=== PATIENT | male | born 1970 | race Caucasian/White ===

== ENCOUNTER 2017-08-08 16:06 | Emergency (ER) | payer BC ==
--- NOTE | 2017-08-08 16:42 | UC ---
Respiratory Complaint HPI - HPI Summary HPI Summary: 46 y/o male presents to the urgent care c/o productive cough, sore throat, nasal congestion w/ yellowish nasal discharge for the past week. Pt reports symptoms started as a common cold. Pt is schedule for a Colonoscopy and endoscopy next Monday and he saw Dr Lee this morning and he told him he had some abnormal breath sounds on RT lung and he needed to f/u w/ PCP to r/o any lung infection. He couldn't get an appt w/ PCP DR Can and he was told to come here to the clinic. Pt is a heavy everyday smoker. Pt denies chills, fever, SOB, chest pain, abdominal pain, N/V/D. - History of Current Complaint Stated Complaint: RESPIRATORY Time Seen by Provider: 08/08/17 16:39 Hx Obtained From: Patient Onset/Duration: Gradual Onset, Lasting Weeks - 1 week Timing: Intermittent Episodes Severity Initially: Mild Severity Currently: Mild Pain Intensity: 0 Pain Scale Used: 0-10 Numeric Character: Cough: Productive, Sputum Description: - yellowish Aggravating Factors: Recumbent Position Alleviating Factors: OTC Meds Associated Signs And Symptoms: Positive: URI, Nasal Congestion. Negative: Fever , Chills - Risk Factors Pulmonary Embolism Risk Factors: Negative Cardiac Risk Factors: Negative Pseudomonas Risk Factors: Negative Tuberculosis Risk Factors: Negative - Allergies/Home Medications Allergies/Adverse Reactions: Allergies Allergy/AdvReac Type Severity Reaction Status Date / Time morphine Allergy Unknown severe Verified 08/08/17 16:34 depression Home Medications: Home Medications Carisoprodol TAB* [Soma TAB*] 350 mg PO Q6H PRN 08/08/17 [History Confirmed ] Dm/Acetaminophen/Doxylamine [Night Cold-Flu Relief Liq Gel] 1 each PO PRN [History] PMH/Surg Hx/FS Hx/Imm Hx Previously Healthy: Yes - Pt denies PMHX - Surgical History Surgical History: Yes Surgery Procedure, Year, and Place: Cyst on lower spine removed - Family History Known Family History: Positive: Unknown - Pt is adopted - Social History Occupation: Employed Full-time Lives: With Family Alcohol Use: Occasionally Alcohol Amount: 6-10 2X PER MONTH Substance Use Type: Marijuana Substance Use Comment - Amount & Last Used: 2-3 X PER MONTYH Smoking Status (MU): Heavy Every Day Tobacco Smoker Type: Cigarettes Amount Used/How Often: 1 ppd Length of Time of Smoking/Using Tobacco: 30 yrs Have You Smoked in the Last Year: Yes - Immunization History Most Recent Influenza Vaccination: no Review of Systems Constitutional: Negative Skin: Negative Eyes: Negative ENT: Nasal Discharge, Sinus Congestion Respiratory: Cough Cardiovascular: Negative Gastrointestinal: Negative Genitourinary: Negative Motor: Negative Neurovascular: Negative Musculoskeletal: Negative Neurological: Negative Psychological: Negative Is Patient Immunocompromised?: No All Other Systems Reviewed And Are Negative: Yes Physical Exam - Summary Physical Exam Summary: Vital Signs Reviewed: Yes General: well developed, well nourished male sitting in the examining table w/o any apparent distress Eyes: Positive: Conjunctiva Clear - PERRLA, EOMI, fundi grossly normal ENT: Positive: Normal ENT inspection, Hearing grossly normal, Pharynx normal, Nasal congestion - edematous and erythematous nasal mucosa, Nasal drainage - yellowish drainage, TMs normal. Negative: Tonsillar swelling, Tonsillar exudate Neck: Positive: Supple, Nontender, No Lymphadenopathy Respiratory: no orthopnea or dyspnea. Able to speak in full sentences, no retractions or accessory muscle use, no tripod position, stridor, or head bobbing. positive breath sounds. RT lungs w/ scattered rhonchi. No wheezing, rhonchi, rales. Cardiovascular: Positive: RRR, No Murmur, Pulses Normal, Brisk Capillary Refill Abdomen Description: Positive: Nontender, No Organomegaly, Soft. Negative: CVA Tenderness (R), CVA Tenderness (L) Bowel Sounds: Positive: Present Musculoskeletal Exam: Normal Musculoskeletal: Positive: Strength Intact, ROM Intact, No Edema Neurological Exam: Normal Psychological Exam: Normal Skin Exam: Normal Triage Information Reviewed: Yes Respiratory Course/Dx - Course Course Of Treatment: 46 y/o male presents to the urgent care c/o productive cough, sore throat, nasal congestion w/ yellowish nasal discharge for the past week. Pt reports symptoms started as a common cold. Pt is schedule for a Colonoscopy and endoscopy next Monday and he saw Dr Lee this morning and he told him he had some abnormal breath sounds on RT lung and he needed to f/u w/ PCP to r/o any lung infection. He couldn't get an appt w/ PCP DR Can and he was told to come here to the clinic. Pt is a heavy everyday smoker. Pt denies chills, fever, SOB, chest pain, abdominal pain, N/V/D.Hx obtained. Pt w/ Rt lung w/ scattered rhonchi on examination. Chest X-ray ordered to r/o pneumonia. Impression: No active Cardiopulmonary disease observed.O2Sat:97%. Pt given a Duneb Tx to clear lungs. Pt tolerated well Tx and luns cleared. Pt Rx Z -ashley PO, Tessalon tabs. His has the nebulizer at home and Duneb Tx. Pt advised to do Tx at night time to alleviate bronchospasm.Pt advised to increase fluid intake and eat well. if not improvement or worsening of symptoms to return to the urgent care or f/u with PCP for further management. Pt's BP is elevated today advised to decrease salt in diet, monitor BP and f/u with PCP for further management. Pt understood and agreed with plan of care - Differential Dx/Diagnosis Differential Diagnosis/HQI/PQRI: Asthma, Bronchitis, Lower Resp Infection, Sinusitis, Other - pneumonia, Provider Diagnoses: 1- Acute bronchitis. 2-Cough. 3- Elevated BP w/o Hx of HTN Discharge - Sign-Out/Discharge Documenting (check all that apply): Discharge - Discharge Plan Condition: Stable Disposition: HOME Prescriptions: Azithromyxin ASHLEY (NF) [Z-Ashley (Zithromax) 250 mg tabs #6] 2 tab PO .TODAY, THEN 1 DAILY #6 tab Benzonatate CAP* [Tessalon 100 MG CAP*] 100 mg PO TID PRN #21 cap PRN Reason: Cough Patient Education Materials: Acute Bronchitis (ED), Low-Sodium Diet (ED) Referrals: Ralph Can MD [Primary Care Provider] - 1 Week Additional Instructions: 1-Please take full course of antibiotic to avoid resistance. 2-Take Tessalon PO tabs as directed and do the Duo neb Tx TID at home inhaler to alleviate cough. Increase fluid intake, rest and eat well. 3- If symptoms do not improve or worsen or your develop SOB with fever and severe wheezing please go immediately to the ER further evaluation and treatment. 4- F/u with your PCP in 1 week for further management 5-Your BP is elevated today. please decrease salt in your diet, monitor BP and if it continues to be elevated please f/u with your PCP for further management - Billing Disposition and Condition Condition: STABLE Disposition: HOME
[2017-08-08 16:48] VITALS: BP 140/85
[2017-08-08] MEDS ORDERED: Albuterol/Ipratropium NEB.SOL* Albuterol 2.5 MG/Ipratropium 0.5 MG 3 ML INH ONE (17:49)
--- NOTE | 2017-08-08 18:04 | RAD ---
HISTORY: Productive cough COMPARISONS: November 06, 2012 VIEWS: 4: Frontal dual-energy and lateral views of the chest. FINDINGS: CARDIOMEDIASTINAL SILHOUETTE: The cardiomediastinal silhouette is normal. DOROTEO: The doroteo are normal. PLEURA: The costophrenic angles are sharp. No pleural abnormalities are noted. LUNG PARENCHYMA: The lungs are clear. ABDOMEN: The upper abdomen is clear. There is no subphrenic gas. BONES AND SOFT TISSUES: No bone or soft tissue abnormalities are noted. OTHER: None. IMPRESSION: NO ACTIVE CARDIOPULMONARY DISEASE.
== END 2017-08-08 18:35 | disposition home or self-care (01) ==
LOC: UCCORT 16:06
DX: J20.9 Acute bronchitis, unspecified (principal); R03.0 Elevated blood-pressure reading, without diagnosis of hypertension; Z88.4 Allergy status to anesthetic agent; F17.210 Nicotine dependence, cigarettes, uncomplicated
CPT/HCPCS: 71046; 99212; A9270-GY; G0463

== ENCOUNTER 2019-04-14 08:44 | Emergency (ER) | payer BC ==
[2019-04-14 09:15] VITALS: BP 140/82
[2019-04-14] MEDS ORDERED: Ibuprofen ADULT LIQ* 600 MG/30 ML UDC PO ONE (09:21)
--- NOTE | 2019-04-14 09:24 | UC ---
Respiratory Complaint HPI - HPI Summary HPI Summary: 48 year old smoker presents with complaint of fever, intermittent cough with right sided rib discomfort when coughing or with movement. No chest discomfort since yesterday, one episode of vomiting yesterday. Denies sob nor mtz. - History of Current Complaint Chief Complaint: UCGeneralIllness Stated Complaint: FEVER RIGHT SIDE CHEST PAIN COUGH Time Seen by Provider: 04/14/19 08:56 Hx Obtained From: Patient Pain Intensity: 4 Associated Signs And Symptoms: Positive: Fever, Chills, Pleuritic Chest Pain. Negative: Dyspnea, Wheezing, Hemoptysis, Dizziness, Calf Pain, Calf Swelling, Nasal Congestion - Allergies/Home Medications Allergies/Adverse Reactions: Allergies Allergy/AdvReac Type Severity Reaction Status Date / Time morphine Allergy Unknown severe Verified 04/14/19 09:11 depression Home Medications: Home Medications Pantoprazole TAB * [Protonix TAB*] 40 mg PO DAILY 04/14/19 [History Confirmed ] PMH/Surg Hx/FS Hx/Imm Hx Previously Healthy: Yes - Surgical History Surgical History: Yes Surgery Procedure, Year, and Place: Pilonidal Cyst, 1990, [place] - Family History Known Family History: Positive: None, Unknown - Pt is adopted - Social History Alcohol Use: Occasionally Alcohol Amount: 6-10 2X PER MONTH Substance Use Type: Marijuana Substance Use Comment - Amount & Last Used: 2-3 X PER MONTYH Smoking Status (MU): Heavy Every Day Tobacco Smoker Type: Cigarettes Amount Used/How Often: 1 PPD Length of Time of Smoking/Using Tobacco: Since Age 15 Have You Smoked in the Last Year: Yes Household Exposure Type: Cigarettes - Immunization History Most Recent Influenza Vaccination: no Review of Systems All Other Systems Reviewed And Are Negative: Yes Constitutional: Positive: Fever, Chills, Fatigue Skin: Positive: Negative Eyes: Positive: Negative ENT: Positive: Negative Respiratory: Positive: Cough - slight. Negative: Shortness Of Breath Cardiovascular: Negative: Palpitations, Chest Pain Gastrointestinal: Positive: Vomiting - one episode yesterday. Negative: Abdominal Pain, Diarrhea Genitourinary: Positive: Negative Motor: Positive: Negative Neurovascular: Positive: Negative Musculoskeletal: Positive: Negative Neurological: Positive: Headache - mild. Negative: Weakness, Paresthesia, Numbness Psychological: Positive: Negative Is Patient Immunocompromised?: No Physical Exam Triage Information Reviewed: Yes Appearance: Well-Appearing, No Pain Distress, Well-Nourished Vital Signs: Initial Vital Signs Temp 102.2 F 04/14/19 09:07 Pulse 96 04/14/19 09:07 Resp 16 04/14/19 09:07 BP 140/82 04/14/19 09:07 Pulse Ox 98 04/14/19 09:07 Vital Signs Reviewed: Yes Eye Exam: Normal ENT: Positive: Normal ENT inspection, Pharynx normal, TMs normal. Negative: Sinus tenderness Neck: Positive: Supple, Nontender, No Lymphadenopathy Respiratory: Positive: Lungs clear, Normal breath sounds. Negative: Respiratory distress, Decreased breath sounds, Crackles, Rhonchi, Wheezing Cardiovascular: Positive: RRR, No Murmur, Pulses Normal Abdomen Description: Positive: Nontender, No Organomegaly, Soft Musculoskeletal Exam: Normal Neurological Exam: Normal Psychological Exam: Normal Skin Exam: Normal Diagnostics - Radiology No standard instances Radiology Interpretation Completed By: Radiologist Summary of Radiographic Findings: Bulk Delivery Driver: Samara Sánchez S ([id number]) House Painter: JANETTE (NUANCE) Report Date: 04/14/2019 09:55:00 Report Status: Final Start of Report Content Patient Name: RUMA IBARRA Medical Record#: [id number] Ordering Physician: Luís Em MD Acct.#: [id number] : 1970 Age: 48 Sex: M Location: [facility] Exam Date: 04/14/19916 ADM Status: REG ER Order Information: CHEST PA LAT 2 VWS Accession Number: [id number] CPT: 08094 Indication: Chest pain. 2 views of the chest are reviewed and compared to previous exam dated August 08, 2017. No mediastinal shift is noted. Heart is of normal size and configuration. Right upper lobe airspace disease consistent with right upper lobe pneumonia extending to the right apex is noted. IMPRESSION: Right upper lobe pneumonia. __ <Electronically signed by Samara Sánchez MD in OV> 04/14/19949 Dictated By: Samara Sánchez MD Dictated Date/Time: 04/14/19948 Transcribed Date/Time: 04/14/19948 Copy to: CC:Ralph Can MD; Luís Em MD Imaging - [facility] Imaging - [facility] Imaging - [facility] [address] [place] [id number] [address] [address] ph ([phone]) ph ([phone]) ph ([phone]) End of Report Content Respiratory Course/Dx - Course Course Of Treatment: Rapid Flu negative. He states he is actually feeling better today than he did the past couple of days. Findings most consistent with a viral URI. - Differential Dx/Diagnosis Differential Diagnosis/HQI/PQRI: Bronchitis Provider Diagnosis: Pneumonia Discharge ED - Sign-Out/Discharge Documenting (check all that apply): Patient Departure All imaging exams completed and their final reports reviewed: Yes - Discharge Plan Condition: Stable Disposition: HOME Prescriptions: DOXYcycline CAP(*) [DOXYcycline 100MG CAP(*)] 100 mg PO BID 10 Days #20 cap Patient Education Materials: Pneumonia (ED) Referrals: Ralph Can MD [Primary Care Provider] - Additional Instructions: Take ibuprofen 600mg or Extra Strength Tylenol as needed for fever. Take all the antibiotics as prescribed. Follow-up with your primary care physician if your symptoms persist or worsen. I recommend a repeat Chest x-ray in one month to confirm resolution of the pneumonia. - Billing Disposition and Condition Condition: STABLE Disposition: Home
[2019-04-14 09:34] LABS: Influenza A Molecular NEGATIVE (Negative); Influenza B Molecular NEGATIVE (Negative)
== END 2019-04-14 10:23 | disposition home or self-care (01) ==
LOC: UCCORT 08:44
DX: J18.9 Pneumonia, unspecified organism (principal); R51 Headache; R53.1 Weakness; R20.2 Paresthesia of skin; R20.0 Anesthesia of skin; F17.210 Nicotine dependence, cigarettes, uncomplicated; Z88.5 Allergy status to narcotic agent
CPT/HCPCS: 71046; 99212; A9270-GY; G0463